=== PATIENT | male | born 1945 | race Caucasian/White ===

== ENCOUNTER → 2017-01-09 | Outpatient (CLI) | payer OTHER ==
[2017-01-09 11:45] LABS: ASPARTATE AMINO TRANSFERASE 47 IU/L (21-57); BILIRUBIN,TOTAL 0.5 mg/dL (0.3-1.2); BLOOD UREA NITROGEN 14 mg/dL (7-22); CALCIUM 11.3 mg/dL (8.7-10.7); CHLORIDE 99 meq/L (98-112); CREATININE 0.8 mg/dL (0.70-1.50); EST GLOMERULAR FILTRATION > 60 (>60 ml/min/1.73m(2)); GLUCOSE 159 mg/dL (78-110); HDL CHOLESTEROL 28 mg/dL (40-150); POTASSIUM 4.1 meq/L (3.8-5.2); SODIUM 142 meq/L (135-145); TOTAL PROTEIN 7.3 g/dL (6.1-8.0); TRIGLYCERIDES 259 mg/dL (44-200)
[2017-01-09 12:01] LABS: HEMOGLOBIN A1C 6.83 % (4.2-6.0); MEAN BLOOD GLUCOSE (CALC) 141.439 mg/dL
[2017-01-09 12:03] LABS: CREATININE, URINE 172.3 MG/DL (15-500)
[2017-01-11 15:36] LABS: A/G RATIO 0.91 (()); ALB PEP SER 3.3 g/dL (3.4-4.7); ALP1 GLOB 0.3 g/dL (0.1-0.3); ALP2 GLOB 1.1 g/dL (0.6-1.0); BETA GLOBS 1.2 g/dL (0.7-1.2)
[2017-01-12 10:33] LABS: IMPRESSION SEE COMMENTS (())
== END ==
LOC: LAB 11:12
PROVIDERS: ATTEND Internal Medicine
DX: E11.9 Type 2 diabetes mellitus without complications (principal); E78.5 Hyperlipidemia, unspecified; E83.52 Hypercalcemia
CPT/HCPCS: 36415; 80053; 80061; 82043; 82306; 82330; 82550; 83036; 83970; 84155; 84165

== ENCOUNTER → 2017-01-11 | Outpatient (CLI) | payer OTHER ==
--- NOTE | 2017-01-12 20:10 | DI ---
MRI LUMBAR SPINE SCAN WITHOUT IV CONTRAST, 01/11/2017 12:31 PM: Clinical History: L5 lumbosacral radiculopathy. Previous Exam: None. Technique: Sagittal and axial T2 weighted; sagittal T1 weighted and T2 STIR; and axial PD. The patien t was unfortunately moving during some of the scan acquisition. There are motion artifacts present. The vertebral bodies are of normal height and size. There is mild L1-2, L3-4, and L5-S1 disc space na rrowing. All lumbar disc spaces show desiccation change. The cord terminates at T12-L1, and the conus medullaris is normal. The disc spaces from T10-11 through L3 for all show very mild circumferentiall y bulging but not herniated discs without canal or neural foraminal stenosis. L4-5 also has a bulging but not herniated disc without canal or neural foraminal stenosis and there is no disc space narrowi ng or evidence of a disc annulus tear. L5-S1 has disc space narrowing with a minimal grade 1 spondylo listhesis. Immediately superior to the superior margin of the bulging disc at L5-S1 is a disc fragmen t along the right lateral margin of the canal. This would be consistent with a herniated disc from L5 -S1 that has migrated superiorly and it has potential to cause impingement of the right L5 nerve root as it passes through the right lateral recess of L5. There is no canal or left neural foraminal sten osis. There is right neural foraminal stenosis. Readin. There is a herniated disc fragment in the lateral recess on the right side of L5 that is causing impingement on the right L5 nerve root at this location. There is also a grade 1 minimal spondylolist hesis with bulging of disc into the right neural foramen causing right neural foraminal stenosis. The re is no canal or left neural foraminal stenosis. 2. There are bulging but not herniated discs without canal or neural foraminal stenosis from T10-11 through L4-5.
== END ==
LOC: MRI 12:23
PROVIDERS: ATTEND Internal Medicine
DX: M54.17 Radiculopathy, lumbosacral region (principal); M51.16 Intervertebral disc disorders with radiculopathy, lumbar region; M43.16 Spondylolisthesis, lumbar region; M47.815 Spondylosis without myelopathy or radiculopathy, thoracolumbar region
CPT/HCPCS: 72148

== ENCOUNTER → 2017-04-04 | Outpatient (CLI) | payer OTHER ==
[2017-04-04 14:37] LABS: BLOOD UREA NITROGEN 14 mg/dL (7-22); CALCIUM 9.9 mg/dL (8.7-10.7); EST GLOMERULAR FILTRATION > 60 (>60 ml/min/1.73m(2)); SERUM ALBUMIN 3.7 g/dL (3.5-4.8)
[2017-04-04 14:38] LABS: CHOL/HDL RATIO 5.35 RATIO (0-4.0); LDL CHOLESTEROL,CALCULATED 68.8 mg/dL
[2017-04-04 14:40] LABS: HEMOGLOBIN A1C 6.51 % (4.2-6.0)
== END ==
LOC: LAB 09:12
PROVIDERS: ATTEND Internal Medicine
DX: E11.9 Type 2 diabetes mellitus without complications (principal); E78.5 Hyperlipidemia, unspecified; E83.52 Hypercalcemia; I25.10 Atherosclerotic heart disease of native coronary artery without angina pectoris; J44.9 Chronic obstructive pulmonary disease, unspecified
CPT/HCPCS: 80053; 80061; 82330; 82550; 83036

== ENCOUNTER → 2017-04-10 | Outpatient (CLI) | payer OTHER | LOC: MMPC 11:11 | PROVIDERS: ATTEND Internal Medicine | DX: E11.9 Type 2 diabetes mellitus without complications (principal); J44.9 Chronic obstructive pulmonary disease, unspecified; I25.10 Atherosclerotic heart disease of native coronary artery without angina pectoris; M06.9 Rheumatoid arthritis, unspecified; M81.8 Other osteoporosis without current pathological fracture; Z95.5 Presence of coronary angioplasty implant and graft | CPT/HCPCS: 99214 ==